=== PATIENT | female | born 1960 | race Caucasian/White ===

== ENCOUNTER → 2016-11-22 | Day surgery (SDC) | payer OTHER ==
[~2016-11-22] MED LIST: LACTATED RINGER'S 1000 ML INJ 1,000 ML ONE; PROPOFOL 500 MG/50 ML BTL IV ONE; Z.0.NO CURRENT MEDS
--- NOTE | 2016-11-22 15:21 | GIPROC ---
[facility] [address] [facility], [address] EGD PROCEDURE REPORT EXAM DATE: 11/22/2016 PATIENT NAME: Noemi Rodney MR #: [id number] BIRTHDATE: 1960 ATTENDING: See Finnegan MD ORDER #: [id number] GINSENG FARMER: Elli Jones CST STATUS: outpatient INDICATIONS: The patient is a 56 yr old female here for an EGD due to history of esophageal reflux PROCEDURE PERFORMED: EGD w/ biopsy MEDICATIONS: None and Per Anesthesia. TOPICAL ANESTHETIC: CONSENT: The patient understands the risks and benefits of the procedure and understands that these risks include, but are not limited to: sedation, allergic reaction, infection, perforation and/or bleeding. Alternative means of evaluation and treatment include, among others: physical exam, x-rays, and/or surgical intervention. The patient elects to proceed with this endoscopic procedure. medical equipment was checked for proper function. Hand hygiene and appropriate measures for infection prevention was taken. After the risks, benefits and alternatives of the procedure were thoroughly explained, Informed consent was verified, confirmed and timeout was successfully executed by the treatment team. The patient was anesthetized with topical anesthesia and the EC-3890Li ([id number]) endoscope was introduced through the mouth and advanced to the second portion of the duodenum. Retroflexed views revealed no abnormalities The gastroscope was then slowly withdrawn and removed. ESOPHAGUS: There was LA Class A esophagitis noted. A biopsy was performed using cold forceps. Sample sent for histology. STOMACH: There was erythematous moderate gastritis in the gastric antrum and gastric body. A biopsy was performed using cold forceps. Sample sent for histology. DUODENUM: The duodenal mucosa appeared normal. ADVERSE EVENTS: There were no complications. IMPRESSIONS: 1. There was LA Class A esophagitis noted; biopsy was performed 2. There was erythematous gastritis in the gastric antrum and gastric body; biopsy was performed 3. Normal duodenal mucosa 4. Retroflexed views revealed no abnormalities RECOMMENDATIONS: 1. Await biopsy results. Biopsy results will not be ready for 7-10 days. If you don't hear from us in two weeks, call our office for biopsy results. 2. Anti-reflux regimen 3. Continue PPI 4. Avoid NSAIDS PATIENT CONDITION: stable DISPOSITION: Home REPEAT EXAM: Return 2 years EGD pending biopsy results See Finnegan MD eSigned: See Finnegan MD 11/22/2016 3:21 PM cc: Dylon Aguillon M.D. PATIENT NAME: Noemi Rodney Cherelle MR#: [id number]
--- NOTE | 2016-11-22 15:34 | GIPROC ---
[facility] [address] [facility], [address] COLONOSCOPY PROCEDURE REPORT EXAM DATE: 11/22/2016 PATIENT NAME: Noemi Rodney MR #: [id number] BIRTHDATE: 1960 ENDOSCOPIST: See Finnegan MD ORDER #: [id number] SPECIAL LIBRARIAN: Elli Jones RN [facility] STATUS: outpatient INDICATIONS: The patient is a 56 yr old female here for a colonoscopy due to average risk patient for colon cancer MEDICATIONS: None and Per Anesthesia. PREP QUALITY: The [place] Bowel Prep Score was Right colon 2, Mid colon 3, and Left colon 3. Total = 8. ESTIMATED BLOOD LOSS: None CONSENT: The patient understands the risks and benefits of the procedure and understands that these risks include, but are not limited to: sedation, allergic reaction, infection, perforation and/or bleeding. Alternative means of evaluation and treatment include, among others: physical exam, x-rays, and/or surgical intervention. The patient elects to proceed with this endoscopic procedure. medical equipment was checked for proper function. Hand hygiene and appropriate measures for infection prevention was taken. After the risks, benefits and alternatives of the procedure were thoroughly explained, Informed consent was verified, confirmed and timeout was successfully executed by the treatment team. A digital exam revealed external hemorrhoids The EC-3890Li ([id number]) endoscope was introduced through the anus and advanced to the cecum, which was identified by both the appendix and ileocecal valve. The instrument was then slowly withdrawn as the colon was fully examined. COLON FINDINGS: A smooth sessile polyp ranging between 3-5mm in size was found in the sigmoid colon. Multiple biopsies were performed using cold forceps. Two polypoid shaped sessile polyps ranging between 3-5mm in size were found in the rectum. A polypectomy was performed with cold forceps. The resection was complete and the polyp tissue was completely retrieved. Retroflexed views revealed internal hemorrhoids and Retroflexed views revealed medium internal hemorrhoids The scope was then completely withdrawn from the patient and the procedure terminated. PROCEDURE WITHDRAWAL TIME:7minutes ADVERSE EVENTS: There were no complications. IMPRESSIONS: 1. A sessile polyp ranging between 3-5mm in size was found in the sigmoid colon; multiple biopsies were performed using cold forceps 2. Two sessile polyps ranging between 3-5mm in size were found in the rectum; polypectomy was performed with cold forceps 3. Retroflexed views revealed internal hemorrhoids 4. Retroflexed views revealed medium internal hemorrhoids 5. Revealed external hemorrhoids RECOMMENDATIONS: 1. Await biopsy results. Biopsy results will not be ready for 7-10 days. If you don't hear from us in two weeks, call our office for results. 2. Continue surveillance 3. Yearly hemoccult RECALL: Return 3 years Colonoscopy, pending biopsy results See Finnegan MD eSigned: See Finnegan MD 11/22/2016 3:34 PM cc: Deborah Vera [facility] Mejia and Jarocho Hsieh M.D. PATIENT NAME: Noemi Rodney MR#: [id number]
== END | disposition home or self-care (01) ==
LOC: ESDC 13:13
PROVIDERS: ATTEND Internal Medicine Gastroenterology
DX: Z12.11 Encounter for screening for malignant neoplasm of colon (principal); D12.5 Benign neoplasm of sigmoid colon; K62.1 Rectal polyp; K64.8 Other hemorrhoids; K64.4 Residual hemorrhoidal skin tags; K21.9 Gastro-esophageal reflux disease without esophagitis; K20.9 Esophagitis, unspecified; K29.70 Gastritis, unspecified, without bleeding
CPT/HCPCS: 00740; 00810; 43239; 45385; 88305; J3010; J7120; 88312